=== PATIENT | male | born 1950 | race Two or more races ===

== ENCOUNTER 2016-09-05 05:02 | Emergency (ER) | payer MEDICARE, MEDICAID ==
[~2016-09-05] VITALS: Ht 165.1 cm; Wt 95.5 kg
[2016-09-05 05:07] VITALS: Ht 165.1 cm; Wt 95.5 kg
[2016-09-05 05:44] LABS: ADD SCAN DIFF NO
[2016-09-05 05:49] LABS: BASOPHIL # 0.1 10^3/ul (0.0-0.1); BASOPHILS % 0.6 % (0.0-2.0); EOSINOPHILS # 0.1 10^3/ul (0.0-0.5); EOSINOPHILS % 1.8 % (0.0-7.0); HEMOGLOBIN 12.3 g/dl (14.0-18.0); LYMPHOCYTES # 1.6 10^3/ul (0.8-2.9); LYMPHOCYTES % 20.6 % (15.0-51.0); MEAN CORPUSCULAR HEMOGLOBIN 29.8 pg (29.0-33.0); MEAN CORPUSCULAR HGB CONC 34.2 g/dl (32.0-37.0); MEAN CORPUSCULAR VOLUME 87.2 fl (82.0-101.0); MEAN PLATELET VOLUME 10.1 fl (7.4-10.4); MONOCYTE # 0.6 10^3/ul (0.3-0.9); MONOCYTES % 7.1 % (0.0-11.0); NEUTROPHIL # 5.5 10^3/ul (1.6-7.5); NEUTROPHILS % 69.5 % (39.0-77.0); PLATELET COUNT 203 10^3/UL (140-415); RED BLOOD COUNT 4.13 10^6/ul (4.70-6.10); RED CELL DISTRIBUTION WIDTH 13.7 % (11.5-14.5); WHITE BLOOD COUNT 7.9 10^3/ul (4.8-10.8)
[2016-09-05] MEDS ORDERED: LANT3I SC (05:55)
[2016-09-05] MEDS ORDERED: MTF1000T PO (05:55)
[2016-09-05] MEDS ORDERED: LORA0.5T PO (05:56)
[2016-09-05] MEDS ORDERED: ASPI-664 PO (05:56)
[2016-09-05 06:11] LABS: INR 0.92; PARTIAL THROMBOPLASTIN TIME 25.4 Sec (25.0-35.0); PROTIME 12.4 Sec (12.2-14.2)
[2016-09-05 06:12] LABS: ANION GAP 13 (8-16); BLOOD UREA NITROGEN 18 mg/dl (7-20); CALCIUM 8.7 mg/dl (8.4-10.2); CARBON DIOXIDE 25 mmol/L (21-31); CHLORIDE 103 mmol/L (97-110); CREATININE 0.81 mg/dl (0.61-1.24); GLUCOSE 230 mg/dl (70-220); POTASSIUM 4.2 mmol/L (3.5-5.1); SODIUM 137 mmol/L (135-144)
[2016-09-05] MEDS ORDERED: NITROGLYCERIN 2% 1 GM OINT PKT TD ONE (06:13)
[2016-09-05] MEDS ORDERED: NITROGLYCERIN (SL) 0.4 MG TAB SL PRN (06:13)
[2016-09-05] MEDS ORDERED: ASPIRIN 81 MG TAB PO ONE (06:13)
[2016-09-05 06:23] LABS: TROPONIN-I < 0.012 ng/ml (0.00-0.12)
--- NOTE | 2016-09-05 06:27 | RADRPT ---
PROCEDURE: Chest Radiograph. CLINICAL INDICATION: Chest pain TECHNIQUE: Single frontal chest radiograph. COMPARISON: None available FINDINGS: The patient is rotated. Heart size is poorly evaluated but appears enlarged.. No infiltrate or ef fusion is seen. The bones are intact. IMPRESSION: 1. No evidence of acute cardiopulmonary disease. RPTAT: KK .Maicol Park MD, MD Date Time Electronically viewed and signed by .Maicol Park MD, on 09/05/2016 06:26 .B/
[2016-09-05] MEDS ORDERED: SOD CHLORIDE 0.9% 100 ML ONE (06:41)
[2016-09-05] MEDS ORDERED: IOHEXOL 300MG/ML 150 ML BTL ONE (06:41)
[2016-09-05 07:23] LABS: AADO2 Arterial 160.1 mmHg (7.0-24.0); Allen Test ACCEPTAB; Arterial Base Excess -1.1 mmol/L (-3.0-3); Arterial COHb 0.3 % (0.0-3.0); Arterial Fraction of Oxyhgb 98.6 % (93.0-99.0); Arterial HCO3 23.3 mmol/L (22.0-26.0); Arterial MetHb 0.5 % (0.0-1.5); Arterial Total Hemglobin 13.7 g/dl (12.0-18.0); Blood Gas IEPAP 15/5; Blood Gas PS 10; MODE MASK - BIPAP
--- NOTE | 2016-09-05 07:25 | RADRPT ---
PROCEDURE: CTA Chest CLINICAL INDICATION: Chest pain and hypoxia. Suspected pulmonary embolus. TECHNIQUE: Thin section spiral CT images were obtained through the vasculature of the chest during administration of 1 and cc of Omnipaque-300 contrast material. Multiplanar reconstructions and 3-D maximum intensity projection reconstructed images were performed. The images were reviewed on a [place] [employer] workstation. The total exam CTDI equals 19.89 mGy, and the total exam DLP equals 816.58 mGy-cm. One or more of the following dose reduction techniques were used: automated exposure control, adju stment of the mA and/or kV according to patient size, or use of iterative reconstruction technique. COMPARISON: Chest x-ray from the same day FINDINGS: 3 mm right upper lobe nodule or scar is seen. Dependent atelectasis of the lungs is seen. No focal i nfiltrate. Small subpleural bullae or blebs are seen adjacent to the right upper lobe. Aortic and c oronary artery calcification is seen. Cardiomegaly is seen. No pleural or pericardial effusion is seen. There is no evidence for pulmonary embolus or aortic dissection. No hilar or mediastinal glenna nopathy is seen. Hepatic steatosis is seen. Degenerative change of the spine. IMPRESSION: No evidence for pulmonary embolus or aortic dissection. No definite acute disease. atherosclerotic change of the aorta and coronary arteries. RPTAT: [facility] Physician Bijan Date Time Electronically viewed and signed by Coby Magana Physician on 09/05/2016 07:24 MARELY/
[2016-09-05] MEDS ORDERED: ONDANSETRON 4 MG INJ IV PRN (08:00)
[2016-09-05] MEDS ORDERED: ACETAMINOPHEN 325 MG TAB PO PRN (08:00)
--- NOTE | 2016-09-05 08:06 | ERA ---
ER Documentation Chief Complaint Date/Time DATE: 09/05/16 TIME: 08:03 Chief Complaint BIB RA W/ C/O NON RADIATING MEDIAL CP X5HRS, 162MG ASA AND 1NITRO GIVEN HPI Patient is a 65-year-old male with hypertension and diabetes who presents with chest pain. His chest pain is midsternal. He had recent varicose vein surgery in his legs. He said that there is "a plan to put a spring into my heart". He said the pain started at midnight. The pain comes and goes. He has had no treatment as of yet. He was brought in by ambulance and was given aspirin nitroglycerin. ROS All systems reviewed and are negative except as per history of present illness. Medications Home Meds Reported Medications Lorazepam* (Lorazepam*) Unknown Strength Tablet, PO HS Y for ANXIETY, TAB 09/05/16 Aspirin* (Aspirin* EC) 81 Mg Tablet.dr, 81 MG PO DAILY, TAB 09/05/16 Metformin* (Glucophage*) 1,000 Mg Tablet, 1000 MG PO BID, #60 TAB 09/05/16 Insulin Glargine* (Lantus*) 100 Unit/Ml Soln, 100 UNIT SC BID, #1 VIAL 09/05/16 Allergies Allergies: Coded Allergies: No Known Allergy (Unverified , 09/05/16) PMhx/Soc Positive for hypertension and diabetes FmHx Family History: coronary disease Physical Exam Vitals Vital Signs Date Time Temp Pulse Resp B/P Pulse Ox O2 Delivery O2 Flow Rate FiO2 09/05/16 07:14 102 22 144/80 97 BIPAP 09/05/16 06:18 103 92 100 09/05/16 05:17 Nasal Cannula 4 09/05/16 05:07 98.0 101 22 133/88 75 Physical Exam Const: Mod distress secondary to pain Head: Atraumatic Eyes: Normal Conjunctiva ENT: Normal External Ears, Nose and Mouth. Neck: Full range of motion..~ No meningismus. Resp: Clear to auscultation bilaterally Cardio: Regular rate and rhythm, no murmurs Abd: Soft, non tender, non distended. Normal bowel sounds Skin: No petechiae or rashes Back: No midline or flank tenderness Ext: No cyanosis, or edema Neur: Awake and alert Psych: Normal Mood and Affect Result Diagram: 09/05/1630 09/05/16 0530 Results 24 hrs Laboratory Tests Test 09/05/16 05:30 09/05/16 06:31 White Blood Count 7.910^3/ul Red Blood Count 4.1310^6/ul Hemoglobin 12.3g/dl Hematocrit 36.0% Mean Corpuscular Volume 87.2fl Mean Corpuscular Hemoglobin 29.8pg Mean Corpuscular Hemoglobin Concent 34.2g/dl Red Cell Distribution Width 13.7% Platelet Count 19128^3/UL Mean Platelet Volume 10.1fl Neutrophils % 69.5% Lymphocytes % 20.6% Monocytes % 7.1% Eosinophils % 1.8% Basophils % 0.6% Nucleated Red Blood Cells % 0.0/100WBC Neutrophils # 5.510^3/ul Lymphocytes # 1.610^3/ul Monocytes # 0.610^3/ul Eosinophils # 0.110^3/ul Basophils # 0.110^3/ul Nucleated Red Blood Cells # 0.010^3/ul Prothrombin Time 12.4Sec Prothrombin Time Ratio 1.0 INR International Normalized Ratio 0.92 Activated Partial Thromboplast Time 25.4Sec Sodium Level 137mmol/L Potassium Level 4.2mmol/L Chloride Level 103mmol/L Carbon Dioxide Level 25mmol/L Anion Gap 13 Blood Urea Nitrogen 18mg/dl Creatinine 0.81mg/dl Glucose Level 230mg/dl Calcium Level 8.7mg/dl Troponin I < 0.012ng/ml Blood Gas Specimen Source Blood arterial Arterial Blood Date Drawn 09/05/2016 7:14:19 AM Arterial Blood pH (Temp corrected) 7.408 Arterial Blood pCO2 (Temp correct) 37.7mmhg Arterial Blood pO2 (Temp corrected) 515.2mmHG Arterial Blood HCO3 23.3mmol/L Arterial Blood Base Excess -1.1mmol/L Arterial Blood Oxygen Saturation 99.4mmHG Hans Test ACCEPTAB Arterial Blood Gas Puncture Site Right Radial Arterial Blood Carboxyhemoglobin 0.3% Arterial Blood Methemoglobin 0.5% Blood Gas A-a O2 Differential 160.1mmHg Oxyhemoglobin Percent 98.6% Total Hemoglobin 13.7g/dl Blood Gas Temperature 37.0C Blood Gas Respiration Rate 10.0 Blood Gas Actual Respiration Rate 27 Blood Gas Modality MASK - BIPAP FiO2 100.0% Blood Gas Pressure Support 10 Blood Gas IPAP/EPAP Ratio 15/5 Blood Gas Notified Whom Irma Blood Gas Notified Time 09/05/2016 7:23:12 AM Current Medications Medications (Trade) Dose Ordered Sig/Letha Route PRN Reason Start Time Stop Time Status Last Admin Dose Admin Aspirin (Aspirin) 162 mg ONCE ONCE PO 09/05/16 06:13 09/05/16 06:17 DC Nitroglycerin (Nitroglycerin 2% Oint) 1 inch ONCE ONCE TD 09/05/16 06:13 09/05/16 06:14 DC 09/05/16 06:17 Nitroglycerin 1 tab 1 tab Q5M UP TO 3 DOSES PRN SL CHEST PAIN 09/05/16 06:13 Sodium Chloride (NS) 100 ml @ ud STK-MED ONCE .ROUTE 09/05/16 06:41 09/05/16 06:42 DC 09/05/16 07:07 Iohexol (Omnipaque 300mg/ ml) 150 ml STK-MED ONCE .ROUTE 09/05/16 06:41 09/05/16 06:42 DC 09/05/16 07:06 Ondansetron HCl (Zofran Inj) 4 mg ER BRIDGE PRN IV NAUSEA AND/OR VOMITING 09/05/16 08:00 09/06/16 07:59 Acetaminophen (Tylenol Tab) 650 mg ER BRIDGE PRN PO MILD PAIN/FEVER 09/05/16 08:00 09/06/16 07:59 Procedures/MDM EKG #1 read by me: Rate/Rhythm: Regular rate and rhythm at a rate of normal rate Intervals: Normal Impression: ST depressions in the lateral leads EKG #2 read by me: Rate/Rhythm: Regular rate and rhythm at a rate of normal rate Intervals: Normal Impression: ST depressions in the lateral leads Chest x-ray negative per radiology. CT scan of the chest shows no pulmonary embolism per radiology. Patient is a 65-year-old male with multiple cardiac risk factors who presents with chest pain. He was persistently hypoxic in the emergency department and required nonrebreather oxygen and then BiPAP therapy. I was concerned for possible pulmonary embolism and therefore a CT scan of the chest was done. This was negative for pulmonary embolism or aortic dissection. There is no sign of pneumonia or pneumothorax. His EKGs are concerning for ischemia given ST depressions. He was given aspirin nitroglycerin. He will be admitted to the care of Dr. Morgan from the panel team for further workup. The patient was able to be weaned off the BiPAP down to 6 L facemask. I am concerned for acute coronary syndrome. Critical Care: Time: 35 minutes excluding all billable procedures. Treatments/Evaluations: Close monitoring and treatment of unstable vital signs, cardiorespiratory, and neurologic status, while maintaining tight balance of fluid, respiratory, and cardiac interventions. Departure Diagnosis: Primary Impression: Respiratory failure Qualified Code: J96.01 - Acute respiratory failure with hypoxia Additional Impressions: Hypoxia Chest pain Qualified Code: R07.9 - Chest pain, unspecified type Anemia Qualified Code: D64.9 - Anemia, unspecified type Hyperglycemia Condition: Serious SANDEE ELLIS MD Sep 05, 2016 08:06
[2016-09-05 09:35] VITALS: BP 137/86; PULSE 73; RESP 17; TEMP 98.3
== END 2016-09-05 09:36 | disposition left against medical advice (07) ==
LOC: E/R 05:02
DX: J96.01 Acute respiratory failure with hypoxia (principal); D64.9 Anemia, unspecified; E11.65 Type 2 diabetes mellitus with hyperglycemia; Z79.4 Long term (current) use of insulin; Z79.82 Long term (current) use of aspirin; Z79.84 Long term (current) use of oral hypoglycemic drugs
CPT/HCPCS: 36415; 36600; 71010; 71275; 80048; 82803; 84484; 85025; 85610; 85730; 93005; 94660; 99291; Q9967